=== PATIENT | female | born 1980 | race Caucasian/White ===

== ENCOUNTER 2017-11-25 06:30 | Day surgery (SDC) | payer OTHER ==
[~2017-11-25] VITALS: Ht 162.6 cm; Wt 117.0 kg
[2017-11-25 06:56] LABS: HCG,QUAL RESULT NEGATIVE (NEGATIVE)
[2017-11-25] MEDS ORDERED: MIDAZOLAM HCL 5 MG/5 ML VIAL IVP ONE (08:45)
[2017-11-25] MEDS ORDERED: PROPOFOL 200MG/ 20ML VIAL (DIPRIVAN) IV ONE (08:45)
[2017-11-25] MEDS ORDERED: ROCURONIUM BROMIDE 10 MG/ML (ZEMURON) IV ONE (08:45)
[2017-11-25] MEDS ORDERED: fentaNYL CITRATE 250 MCG/5 ML AMP IV ONE (08:45)
[2017-11-25] MEDS ORDERED: NS 1000 ML IV.SOLN IV ONE (08:45)
[2017-11-25] MEDS ORDERED: ONDANSETRON HCL 4 MG/2 ML VIAL IVP ONE (08:45)
[2017-11-25] MEDS ORDERED: NS IRRIG SOLN 1000 ML IR ONE (08:45)
[2017-11-25] MEDS ORDERED: KETOROLAC TROMETHAMINE 30 MG VIAL IVP ONE (08:45)
[2017-11-25] MEDS ORDERED: SEVOFLURANE 15 MIN GAS INH ONE (08:45)
[2017-11-25] MEDS ORDERED: DEXAMETHASONE SOD PHOSPHATE 4 MG/ML VIAL IVP ONE (08:45)
[2017-11-25] MEDS ORDERED: LR 1,000 ML IV SCH (09:59)
[2017-11-25] MEDS ORDERED: MEPERIDINE HCL/PF 25 MG/ML DISP.SYRIN IVP PRN (10:00)
[2017-11-25] MEDS ORDERED: IBUPROFEN 800 MG TABLET PO PRN (10:00)
[2017-11-25] MEDS ORDERED: OXYCODONE/ACETAMINOPHEN 5-325 TABLET PO PRN ×2 (10:00)
[2017-11-25] MEDS ORDERED: HYDROmorphone 1 MG INJ. 1 MG/ML AMPUL IVP PRN (10:00)
[2017-11-25] MEDS ORDERED: ONDANSETRON HCL 4 MG/2 ML VIAL IVP PRN (10:00)
[2017-11-25] MEDS ORDERED: HYDROmorphone 2 MG/ML VIAL IVP PRN ×2 (10:00)
[2017-11-25 11:03] VITALS: BP_SYST 112
== END 2017-11-25 12:05 | disposition home or self-care (01) ==
LOC: SMU 06:30 → SDS 06:30
PROVIDERS: ATTEND Obstetrics & Gynecology
DX: N84.0 Polyp of corpus uteri (principal); R93.8 Abnormal findings on diagnostic imaging of other specified body structures; F15.90 Other stimulant use, unspecified, uncomplicated; E66.01 Morbid (severe) obesity due to excess calories; Z68.41 Body mass index [BMI] 40.0-44.9, adult; Z72.89 Other problems related to lifestyle; Z83.3 Family history of diabetes mellitus; Z82.49 Family history of ischemic heart disease and other diseases of the circulatory system; Z82.61 Family history of arthritis
CPT/HCPCS: 58558; 84703; 88305; J1100; J1885; J2250; J2405; J2704; J3010; J7030

== ENCOUNTER 2020-02-17 20:40 | Inpatient (IN) | payer BC, OTHER ==
[~2020-02-17] VITALS: Ht 162.6 cm; Wt 113.9 kg
[2020-02-17 20:51] VITALS: BP_SYST 155
[2020-02-17 21:29] LABS: BASOPHILS # (AUTO) 0.1 K/uL (0.0-0.2); BASOPHILS % (AUTO) 0.8 % (0.0-2.0); EOSINOPHILS # (AUTO) 0.2 K/uL (0.0-0.4); HEMATOCRIT 41.4 % (36-48); LYMPHOCYTES # (AUTO) 3.7 K/uL (1.0-5.5); LYMPHOCYTES % (AUTO) 20.9 % (20.5-51.5); MEAN CORPUSCULAR HEMOGLOBIN 30 pg (27-31); MEAN CORPUSCULAR HGB CONC 34 % (32-36); MEAN CORPUSCULAR VOLUME 89 fL (79.0-98.0); MONOCYTES # (AUTO) 1.3 K/uL (0.0-1.0); MONOCYTES % (AUTO) 7.1 % (1.7-9.3); NEUTROPHILS # (AUTO) 12.4 K/uL (1.8-7.7); NEUTROPHILS % (AUTO) 70.2 % (40.0-70.0); PLATELET COUNT (AUTO) 214 K/uL (130-430); RED BLOOD CELL COUNT(AUTO) 4.64 MIL/uL (4.2-6.2); RED CELL DISTRIBUTION WIDTH 13.6 % (9.0-15.0); WHITE BLOOD COUNT (AUTO) 17.7 K/uL (4.8-10.8)
[2020-02-17 21:48] LABS: CREATININE 0.78 mg/dL (0.55-1.30); POTASSIUM 3.6 mmol/L (3.5-5.1)
[2020-02-17 21:53] LABS: ALBUMIN 3.4 g/dL (3.4-4.8); TOTAL BILIRUBIN 1.2 mg/dL (0.0-1.0)
[2020-02-17 23:02] LABS: BILIRUBIN,URINE NEGATIVE (NEGATIVE); COLOR,URINE YELLOW (YELLOW); GLUCOSE,URINE NEGATIVE (NEGATIVE); KETONES,URINE NEGATIVE (NEGATIVE); LEUKOCYTE ESTERASE ,URINE 1+ (NEGATIVE); NITRITE, URINE NEGATIVE (NEGATIVE); PROTEIN URINE NEGATIVE (NEGATIVE); UROBILINOGEN,URINE 0.2 (0.2-1.0)
[2020-02-17 23:04] LABS: BLOOD, URINE TRACE (NEGATIVE); CLARITY/URINE HAZY (CLEAR)
[2020-02-17 23:19] LABS: BACTERIA,URINE MODERATE /HPF (None Seen); MUCUS,URINE None Seen /LPF (None Seen); RBC,URINE 0-3 /HPF (0-3); URINE AMORPHOUS PHOSPHATES 2+ /HPF (None Seen)
[2020-02-18] MEDS ORDERED: metroNIDAZOLE 500 mg/NS 100 ML IV ONE (00:30)
[2020-02-18] MEDS ORDERED: cefTRIAXone 1 GM in D5W 50 ML IV ONE (00:30)
[2020-02-18] MEDS ORDERED: MORPHINE 2 MG/ML INJ. SYRINGE IVP PRN (01:00)
[2020-02-18] MEDS ORDERED: D5NS 1,000 ML IV SCH (01:00)
[2020-02-18 01:11] LABS: INR 0.9 (0.8-1.2); PROTHROMBIN TIME 9.3 SECS (9.5-12.5)
[2020-02-18] MEDS ORDERED: cefTRIAXone 1 GM VIAL ONE (01:46)
[2020-02-18] MEDS ORDERED: DULA0.75 SQ (02:41)
[2020-02-18] MEDS ORDERED: ONDANSETRON HCL 4 MG/2 ML VIAL IVP PRN (02:45)
[2020-02-18] MEDS ORDERED: NALOXONE HCL 0.4 MG/ML AMP (NARCAN) IVP PRN (02:45)
[2020-02-18] MEDS ORDERED: PIPERACILLIN/TAZOBACTAM 3.375 GM/VIAL (ZOSYN) IV ONE (03:51)
[2020-02-18] MEDS: PIPERACILLIN/TAZO 3.375/DEX-IS 50 ML IV SCH ×5 (04:30→23:20)
[2020-02-18] MEDS: NACL 0.9% 1,000 ML IV SCH ×3 (04:45→21:58)
[2020-02-18] MEDS ORDERED: metroNIDAZOLE 500 mg/NS 100 ML IV SCH (06:00)
[2020-02-18 07:51] LABS: ALBUMIN 3.2 g/dL (3.4-4.8); CALCIUM 8.3 mg/dL (8.4-11.0); CREATININE 0.7 mg/dL (0.55-1.30); POTASSIUM 3.9 mmol/L (3.5-5.1)
[2020-02-18 08:08] LABS: BASOPHILS # (AUTO) 0.1 K/uL (0.0-0.2); BASOPHILS % (AUTO) 0.9 % (0.0-2.0); EOSINOPHILS # (AUTO) 0.1 K/uL (0.0-0.4); EOSINOPHILS % (AUTO) 1.2 % (0.0-4.0); HEMATOCRIT 40.9 % (36-48); HEMOGLOBIN 13.6 g/dL (12.0-16.0); LYMPHOCYTES # (AUTO) 2.7 K/uL (1.0-5.5); LYMPHOCYTES % (AUTO) 20.8 % (20.5-51.5); MEAN CORPUSCULAR HEMOGLOBIN 30 pg (27-31); MEAN CORPUSCULAR HGB CONC 33 % (32-36); MEAN CORPUSCULAR VOLUME 90 fL (79.0-98.0); MONOCYTES # (AUTO) 0.6 K/uL (0.0-1.0); NEUTROPHILS # (AUTO) 9.3 K/uL (1.8-7.7); NEUTROPHILS % (AUTO) 72.1 % (40.0-70.0); PLATELET COUNT (AUTO) 184 K/uL (130-430); RED BLOOD CELL COUNT(AUTO) 4.56 MIL/uL (4.2-6.2); RED CELL DISTRIBUTION WIDTH 13.4 % (9.0-15.0); WHITE BLOOD COUNT (AUTO) 12.9 K/uL (4.8-10.8)
[2020-02-18] MEDS: metroNIDAZOLE 500 mg/NS 100 ML IV SCH ×2 (10:58→16:56)
[2020-02-18 11:47] VITALS: BP_SYST 129
[2020-02-18 16:07] VITALS: BP_SYST 113
[2020-02-18] MEDS: MORPHINE 2 MG/ML INJ. SYRINGE IVP PRN (17:04)
[2020-02-18 20:15] VITALS: BP_SYST 117
[2020-02-19] MEDS: metroNIDAZOLE 500 mg/NS 100 ML IV SCH ×3 (01:50→16:57)
[2020-02-19] MEDS: NACL 0.9% 1,000 ML IV SCH ×3 (01:51→16:56)
[2020-02-19 02:07] VITALS: BP_SYST 113
[2020-02-19] MEDS: PIPERACILLIN/TAZO 3.375/DEX-IS 50 ML IV SCH ×4 (05:41→23:25)
[2020-02-19 06:52] LABS: BASOPHILS # (AUTO) 0.1 K/uL (0.0-0.2); BASOPHILS % (AUTO) 0.6 % (0.0-2.0); EOSINOPHILS # (AUTO) 0.2 K/uL (0.0-0.4); EOSINOPHILS % (AUTO) 1.7 % (0.0-4.0); HEMATOCRIT 40.9 % (36-48); HEMOGLOBIN 13.6 g/dL (12.0-16.0); LYMPHOCYTES # (AUTO) 3.7 K/uL (1.0-5.5); LYMPHOCYTES % (AUTO) 26.1 % (20.5-51.5); MEAN CORPUSCULAR HEMOGLOBIN 30 pg (27-31); MEAN CORPUSCULAR HGB CONC 33 % (32-36); MEAN CORPUSCULAR VOLUME 90 fL (79.0-98.0); MONOCYTES # (AUTO) 0.9 K/uL (0.0-1.0); MONOCYTES % (AUTO) 6.3 % (1.7-9.3); NEUTROPHILS # (AUTO) 9.3 K/uL (1.8-7.7); NEUTROPHILS % (AUTO) 65.3 % (40.0-70.0); PLATELET COUNT (AUTO) 230 K/uL (130-430); RED BLOOD CELL COUNT(AUTO) 4.55 MIL/uL (4.2-6.2); RED CELL DISTRIBUTION WIDTH 13.3 % (9.0-15.0); WHITE BLOOD COUNT (AUTO) 14.2 K/uL (4.8-10.8)
[2020-02-19 06:57] LABS: HCG,QUAL RESULT NEGATIVE (NEGATIVE)
[2020-02-19 07:04] LABS: ALBUMIN 3.3 g/dL (3.4-4.8); CALCIUM 8.4 mg/dL (8.4-11.0); CREATININE 0.92 mg/dL (0.55-1.30); POTASSIUM 3.7 mmol/L (3.5-5.1)
[2020-02-19 07:23] LABS: TOTAL BILIRUBIN 1.6 mg/dL (0.0-1.0)
[2020-02-19] MEDS ORDERED: ONDANSETRON HCL 4 MG/2 ML VIAL IVP PRN (08:15)
[2020-02-19] MEDS ORDERED: METOCLOPRAMIDE HCL 10 MG/2 ML VIAL IVP PRN (08:15)
[2020-02-19] MEDS ORDERED: MEPERIDINE HCL/PF 25 MG/ML DISP.SYRIN IVP PRN (08:15)
[2020-02-19] MEDS ORDERED: LR 1,000 ML IV SCH (08:15)
[2020-02-19] MEDS ORDERED: KETOROLAC TROMETHAMINE 30 MG VIAL IVP PRN (08:15)
[2020-02-19] MEDS ORDERED: HYDROmorphone 1 MG INJ. 1 MG/ML AMPUL IVP PRN (08:15)
[2020-02-19] MEDS ORDERED: HYDROmorphone 1 MG INJ. 1 MG/ML AMPUL ONE (10:32)
[2020-02-19 11:05] VITALS: BP_SYST 106
[2020-02-19 15:00] VITALS: BP_SYST 118
[2020-02-19 15:39] VITALS: BP_SYST 96
[2020-02-19 16:30] VITALS: BP_SYST 96
[2020-02-19 20:00] VITALS: BP_SYST 122
[2020-02-19] MEDS: MORPHINE 2 MG/ML INJ. SYRINGE IVP PRN (23:38)
[2020-02-20] MEDS: NACL 0.9% 1,000 ML IV SCH ×2 (03:03→10:45)
[2020-02-20] MEDS: metroNIDAZOLE 500 mg/NS 100 ML IV SCH ×3 (03:03→17:26)
[2020-02-20] MEDS: PIPERACILLIN/TAZO 3.375/DEX-IS 50 ML IV SCH ×3 (05:05→17:26)
[2020-02-20 06:00] VITALS: BP_SYST 123
[2020-02-20] MEDS: MORPHINE 2 MG/ML INJ. SYRINGE IVP PRN ×2 (06:52→22:17)
[2020-02-20 08:09] VITALS: BP_SYST 110
[2020-02-20 10:21] LABS: BASOPHILS % (AUTO) 0.3 % (0.0-2.0); EOSINOPHILS % (AUTO) 0.2 % (0.0-4.0); HEMATOCRIT 36.1 % (36-48); HEMOGLOBIN 11.7 g/dL (12.0-16.0); LYMPHOCYTES % (AUTO) 14.7 % (20.5-51.5); MEAN CORPUSCULAR HEMOGLOBIN 29 pg (27-31); MEAN CORPUSCULAR HGB CONC 32 % (32-36); MEAN CORPUSCULAR VOLUME 91 fL (79.0-98.0); MONOCYTES % (AUTO) 7.6 % (1.7-9.3); NEUTROPHILS # (AUTO) 10.5 K/uL (1.8-7.7); NEUTROPHILS % (AUTO) 77.2 % (40.0-70.0); PLATELET COUNT (AUTO) 190 K/uL (130-430); RED BLOOD CELL COUNT(AUTO) 3.99 MIL/uL (4.2-6.2); RED CELL DISTRIBUTION WIDTH 13.4 % (9.0-15.0); WHITE BLOOD COUNT (AUTO) 13.6 K/uL (4.8-10.8)
[2020-02-20 10:33] LABS: CREATININE 0.77 mg/dL (0.55-1.30); POTASSIUM 3.6 mmol/L (3.5-5.1)
[2020-02-20 10:39] LABS: ALBUMIN 2.6 g/dL (3.4-4.8); TOTAL BILIRUBIN 1.2 mg/dL (0.0-1.0)
[2020-02-20] MEDS: MORPHINE 4 MG/ML INJ. SYRINGE IVP PRN ×2 (12:52→17:26)
[2020-02-20 15:56] VITALS: BP_SYST 106
[2020-02-20 20:00] VITALS: BP_SYST 129
[2020-02-21] VITALS: BP_SYST 105
[2020-02-21] MEDS: PIPERACILLIN/TAZO 3.375/DEX-IS 50 ML IV SCH ×4 (00:15→17:11)
[2020-02-21] MEDS: metroNIDAZOLE 500 mg/NS 100 ML IV SCH ×3 (01:50→17:10)
[2020-02-21] MEDS: NACL 0.9% 1,000 ML IV SCH ×2 (01:50→09:41)
[2020-02-21 08:00] VITALS: BP_SYST 143
[2020-02-21] MEDS: MORPHINE 2 MG/ML INJ. SYRINGE IVP PRN (08:34)
[2020-02-21 11:43] LABS: BASOPHILS # (AUTO) 0.1 K/uL (0.0-0.2); BASOPHILS % (AUTO) 0.4 % (0.0-2.0); EOSINOPHILS # (AUTO) 0.2 K/uL (0.0-0.4); HEMATOCRIT 41.4 % (36-48); HEMOGLOBIN 13.7 g/dL (12.0-16.0); LYMPHOCYTES # (AUTO) 2.7 K/uL (1.0-5.5); LYMPHOCYTES % (AUTO) 17.3 % (20.5-51.5); MEAN CORPUSCULAR HEMOGLOBIN 30 pg (27-31); MEAN CORPUSCULAR HGB CONC 33 % (32-36); MEAN CORPUSCULAR VOLUME 92 fL (79.0-98.0); MONOCYTES # (AUTO) 0.9 K/uL (0.0-1.0); MONOCYTES % (AUTO) 5.8 % (1.7-9.3); NEUTROPHILS % (AUTO) 75.5 % (40.0-70.0); PLATELET COUNT (AUTO) 163 K/uL (130-430); RED BLOOD CELL COUNT(AUTO) 4.52 MIL/uL (4.2-6.2); RED CELL DISTRIBUTION WIDTH 13.5 % (9.0-15.0); WHITE BLOOD COUNT (AUTO) 15.9 K/uL (4.8-10.8)
[2020-02-21 12:00] VITALS: BP_SYST 126
[2020-02-21 15:32] VITALS: BP_SYST 131
[2020-02-21] MEDS: MORPHINE 4 MG/ML INJ. SYRINGE IVP PRN (15:52)
[2020-02-21 16:00] VITALS: BP_SYST 113
[2020-02-21] MEDS ORDERED: LEVO500T89 PO (16:57)
[2020-02-21 20:00] VITALS: BP_SYST 118
[2020-02-22] VITALS: BP_SYST 116
[2020-02-22] MEDS: PIPERACILLIN/TAZO 3.375/DEX-IS 50 ML IV SCH ×3 (00:16→12:19)
[2020-02-22] MEDS: MORPHINE 2 MG/ML INJ. SYRINGE IVP PRN (00:29)
[2020-02-22] MEDS: metroNIDAZOLE 500 mg/NS 100 ML IV SCH ×2 (01:53→09:34)
[2020-02-22 08:09] VITALS: BP_SYST 130
[2020-02-22 08:39] LABS: BASOPHILS % (AUTO) 0.4 % (0.0-2.0); EOSINOPHILS # (AUTO) 0.3 K/uL (0.0-0.4); EOSINOPHILS % (AUTO) 2.8 % (0.0-4.0); HEMATOCRIT 34.8 % (36-48); HEMOGLOBIN 11.5 g/dL (12.0-16.0); LYMPHOCYTES # (AUTO) 2.2 K/uL (1.0-5.5); LYMPHOCYTES % (AUTO) 22.4 % (20.5-51.5); MEAN CORPUSCULAR HEMOGLOBIN 30 pg (27-31); MEAN CORPUSCULAR HGB CONC 33 % (32-36); MEAN CORPUSCULAR VOLUME 91 fL (79.0-98.0); MONOCYTES # (AUTO) 0.7 K/uL (0.0-1.0); MONOCYTES % (AUTO) 7.3 % (1.7-9.3); NEUTROPHILS # (AUTO) 6.7 K/uL (1.8-7.7); NEUTROPHILS % (AUTO) 67.1 % (40.0-70.0); PLATELET COUNT (AUTO) 195 K/uL (130-430); RED BLOOD CELL COUNT(AUTO) 3.83 MIL/uL (4.2-6.2); RED CELL DISTRIBUTION WIDTH 13.4 % (9.0-15.0)
[2020-02-22] MEDS: MORPHINE 4 MG/ML INJ. SYRINGE IVP PRN (09:40)
[2020-02-22 11:13] VITALS: BP_SYST 130
[2020-02-22 11:36] VITALS: BP_SYST 126
[2020-02-22] MEDS ORDERED: POLYETHYLENE GLYCOL 3350, 17 GM/ POWD.PACK PO ONE (12:15)
[2020-02-22 13:24] VITALS: BP_SYST 126
[2020-02-23] MEDS ORDERED: POLYETHYLENE GLYCOL 3350, 17 GM/ POWD.PACK PO SCH (09:00)
== END 2020-02-22 14:30 | disposition home or self-care (01) | DRG 418 ==
LOC: SED 20:40 → SMU 02-18 01:39
PROVIDERS: ADMIT Internal Medicine Hospice and Palliative Medicine; ATTEND Internal Medicine Hospice and Palliative Medicine
PROC: BF121ZZ Fluoroscopy of Gallbladder using Low Osmolar Contrast (ICD-10-PCS; 2020-02-19)
PROC: 0FT44ZZ Resection of Gallbladder, Percutaneous Endoscopic Approach (ICD-10-PCS; principal; 2020-02-19 07:30)
DX: K81.0 Acute cholecystitis (principal); K82.1 Hydrops of gallbladder; D72.829 Elevated white blood cell count, unspecified; K66.0 Peritoneal adhesions (postprocedural) (postinfection); E28.2 Polycystic ovarian syndrome; K82.A1 Gangrene of gallbladder in cholecystitis; Z20.828 Contact with and (suspected) exposure to other viral communicable diseases
CPT/HCPCS: 36415; 74300; 76700-TC; 78226; 80053; 81000-TC; 83605; 83690-TC; 84703; 85025; 85610-TC; 87040-TC; 87081; 87086; 88304; 96365; 96367; 99285; A9537; C1727; J0696; J1170; J2270; J2543; J3490; Q9967

== ENCOUNTER 2022-02-28 13:00 | Emergency (ER) | payer BC ==
[~2022-02-28] VITALS: Ht 162.6 cm; Wt 115.2 kg
[~2022-02-28 13:00] MED LIST: DULA0.75 SQ; LEVO-62 PO
[2022-02-28 13:15] VITALS: BP_SYST 137
[2022-02-28] MEDS ORDERED: ONDA-8 TL (16:42)
[2022-02-28] MEDS ORDERED: ONDANSETRON 4 MG ODT TAB PO ONE (16:45)
[2022-02-28 17:09] VITALS: BP_SYST 137
== END 2022-02-28 17:09 | disposition home or self-care (01) ==
LOC: SED 13:00
DX: S06.0X0A Concussion without loss of consciousness, initial encounter (principal); Z79.899 Other long term (current) drug therapy; W18.39XA Other fall on same level, initial encounter; Y93.89 Activity, other specified; Y92.89 Other specified places as the place of occurrence of the external cause; Y99.8 Other external cause status
CPT/HCPCS: 99284; 70450; 76376; 81025; Q0162